=== PATIENT | female | born 1985 | race Caucasian/White ===

== ENCOUNTER → 2018-01-10 | Outpatient (CLI) | payer OTHER ==
[~2018-01-10] MED LIST: PRENTAB26 PO
== END | disposition home or self-care (01) ==
LOC: C.PAPS 11:50
PROVIDERS: ATTEND Obstetrics & Gynecology
DX: Z12.4 Encounter for screening for malignant neoplasm of cervix (principal); R87.616 Satisfactory cervical smear but lacking transformation zone

== ENCOUNTER 2018-03-03 05:31 | Observation (INO) | payer OTHER ==
[2018-02-12 09:39] VITALS: BMI 24.0
--- NOTE | 2018-02-12 10:02 | PAT Medication Instructions ---
Service Date Feb 12, 2018. Current Home Medication List No Active Prescriptions or Reported Meds Medication Instructions For Your Scheduled Surgery No Active Prescriptions or Reported Meds- Please contact PAT department if starting any medications prior to surgery. If you have any questions please call us at [phone] or [phone] or [phone]
[2018-02-12 11:30] LABS: BASO % 0.3 %; BASO ABS # 0.01 K/uL (0-0.2); EOS % 1.3 %; EOS ABS # 0.05 K/uL (0-0.5); HEMATOCRIT 35.1 % (37-47); HEMOGLOBIN 11.8 g/dL (12.0-16.0); LYMPH % 34.7 %; LYMPH ABS # 1.35 K/uL (1.2-3.4); MEAN CELL VOLUME 82.8 fL (80-100); MEAN CORPUSCULAR HEMOGLOBIN 27.8 pg (25-34); MEAN CORPUSCULAR HGB CONC 33.6 g/dl (32-36); MEAN PLATELET VOLUME 9.4 fL (7.4-10.4); MONO % 8.2 %; MONO ABS # 0.32 K/uL (0.11-0.59); NEUT % 55.5 %; NEUT ABS # 2.16 K/uL (1.4-6.5); PLATELET COUNT 166 K/uL (130-400); RED CELL DISTRIBUTION WIDTH CV 13.6 % (11.5-14.5); RED CELL DISTRIBUTION WIDTH SD 41.1 fL (36.4-46.3); WHITE BLOOD COUNT 3.89 K/uL (4.8-10.8)
[2018-02-12 11:33] LABS: CREATININE 0.74 mg/dl (0.60-1.20); POTASSIUM 3.9 mmol/L (3.5-5.1)
[~2018-03-03] VITALS: Ht 162.6 cm; Wt 63.8 kg
[2018-03-03] VITALS (8 sets, daily range): BP systolic 90–125; BP diastolic 42–78; PULSE 49–64; TEMP 36.4–36.8; O2SAT 99–100; Ht 162.6 cm; Wt 63.8 kg
[2018-03-03] MEDS ORDERED: CEFAZOLIN 2000MG IV PUSH 15 ML IV SCH (06:00)
[2018-03-03] MEDS ORDERED: LACTATED RINGER'S 1000ML 1,000 ML IV SCH ×2 (06:00→11:00)
[2018-03-03] MEDS ORDERED: IBUP-103 PO (06:01)
[2018-03-03] MEDS ORDERED: ACET-1311 PO (06:01)
[2018-03-03] MEDS ORDERED: METHYLENE BLUE 0.5% 10 ML VIAL ONE (06:56)
[2018-03-03] MEDS ORDERED: BUPIVACAINE 0.5 % 5 MG/1 ML MPF 30ML VIAL ONE (06:56)
[2018-03-03] MEDS ORDERED: FENTANYL CITRATE INJ 50 MCG/1 ML 2 ML VIAL ONE ×2 (07:01→08:01)
[2018-03-03] MEDS ORDERED: MIDAZOLAM HCL 1 MG/ML 2ML VIAL ONE (07:01)
--- NOTE | 2018-03-03 07:04 | History & Physical Bridge Note ---
H&P Re-Evaluation Bridge Note: I have examined the patient, reviewed the History & Physical and in the interval since the performance of the History & Physical I have noted the following changes of clinical significance: No changes noted
[2018-03-03] MEDS ORDERED: ACETAMINOPHEN 1000 MG/100 ML IV IV ONE (07:12)
[2018-03-03] MEDS ORDERED: LIDOCAINE HCL 2% JELLY 30 ML TUBE EXT ONE (07:12)
[2018-03-03] MEDS ORDERED: PROPOFOL IV EMULSION 10 MG/ML 20 ML VIAL IV ONE (08:07)
[2018-03-03] MEDS ORDERED: ONDANSETRON INJ 2 MG/ML 2 ML VIAL ONE (08:07)
[2018-03-03] MEDS ORDERED: GLYCOPYRROLATE INJ 0.2 MG/ML VIAL ONE ×2 (08:07→08:57)
[2018-03-03] MEDS ORDERED: DEXAMETHASONE SOD INJ 4 MG/ML VIAL ONE (08:07)
[2018-03-03] MEDS ORDERED: DiphenhydrAMINE HCL 50 MG/ML VIAL ONE (08:07)
[2018-03-03] MEDS ORDERED: ROCURONIUM BROMIDE 10 MG/ML 5 ML VIAL IV ONE ×2 (08:07→08:32)
[2018-03-03] MEDS ORDERED: LIDOCAINE HCL 2% 2 ML VIAL (20MG/ML) ONE (08:07)
[2018-03-03] MEDS ORDERED: NEOSTIGMINE METHYLSULFATE 5 MG/5 ML SYR ONE (08:07)
[2018-03-03] MEDS ORDERED: TISSEEL FIBRIN SEALANT 4ML TOP ONE (08:52)
[2018-03-03] MEDS ORDERED: KETOROLAC TROMETHAMINE 30 MG/ML VIAL ONE (08:58)
[2018-03-03] MEDS ORDERED: ACETAMINOPHEN 325 MG TAB PO PRN (09:15)
[2018-03-03] MEDS ORDERED: ONDANSETRON INJ 2 MG/ML 2 ML VIAL IV PRN (09:15)
[2018-03-03] MEDS ORDERED: KETOROLAC TROMETHAMINE 30 MG/ML VIAL IV. PRN (09:15)
[2018-03-03] MEDS ORDERED: ZOLPIDEM TARTRATE 5 MG TAB PO PRN (09:15)
[2018-03-03] MEDS ORDERED: PROMETHAZINE HCL INJ 12.5 MG in SODIUM CHLORIDE 0.9% 50ML 50 ML IV PRN (09:15)
[2018-03-03] MEDS ORDERED: OXYCODONE/ACETAMINOPHEN 5-325 TAB PO PRN ×2 (09:15)
[2018-03-03] MEDS ORDERED: BISACODYL 10 MG SUPP PR PRN (09:15)
[2018-03-03] MEDS ORDERED: SIMETHICONE 80 MG CHEW PO PRN (09:15)
[2018-03-03] MEDS ORDERED: IBUPROFEN 600 MG TAB PO PRN (09:15)
[2018-03-03] MEDS ORDERED: MAGNESIUM HYDROXIDE SUSP 30 ML UDC PO PRN (09:15)
[2018-03-03] MEDS ORDERED: MEPERIDINE HCL 50 MG/ML CARP IV PRN ×2 (09:15)
[2018-03-03] MEDS ORDERED: PROMETHAZINE HCL INJ 25 MG in SODIUM CHLORIDE 0.9% 50ML 50 ML IV PRN (09:15)
--- NOTE | 2018-03-03 09:16 | [facility] Post Operative Brief Note ---
Immediate Operative Summary Operative Date Mar 03, 2018. Pre-Operative Diagnosis Menorrhagia with irregular cycle, Leiomyoma of the Uterus, Uterine Enlargement Post-Operative Diagnosis Same as preop Procedure(s) Performed Total Laparoscopic Hysterectomy Bilateral Salpinjectomy Robot Assist; Cystopscopy Surgeon Dr. Matute Helminthologist Surgeon(s) None Estimated Blood Loss 20 ml Findings Consistent with Post-Op Diagnosis Specimens A. Cervix, Uterus, Bilateral Fallopian Tubes Drains Koehler Anesthesia Type General Complication(s) none Disposition Accompanied Pt To Recover: no Disposition: Recovery Room / PACU
--- NOTE | 2018-03-03 09:17 | Discharge Instructions ---
Discharge Instructions Date of Service Mar 03, 2018. Admission Reason for Admission: Menorrhagia W/Regular Cycle, Fibroids Discharge Discharge Diagnosis / Problem: Menorrhagia Discharge Goals Goal(s): Routine recovery after surgery Activity Recommendations Activity Limitations: per Instructions/Follow-up section . Instructions / Follow-Up Instructions / Follow-Up POST OPERATIVE: BOWEL FUNCTION/MEDICATIONS: 1. Constipation pain and discomfort are the most common complaints 5-7 days after surgery. Points 2-6 address the things that can help. 2. Chewing gum can help stimulate the gut and help improve digestion and motility. 3. Milk of Magnesia 1-2 times per day until return of bowel function. 4. Colace is a stool softener that helps. Taking this 2-3 times per day until bowel function returns to normal is highly recommended. 5. Dulcolax is a laxative that may be used if several days have passed without a bowel movement. Alternatively Miralax may be used daily instead. 6. Drink plenty of fluids as this will also reduce constipation. 7. Narcotic pain medications will be prescribed by your physician. They are safe to use and we encourage you to use them. If you are not allergic, ibuprofen will also be prescribed. Many patients will be able to transition off of the narcotic medications to ibuprofen by postoperative day 3. ACTIVITY RECOMMENDATIONS: 1. Get plenty of rest and listen to your body. If you are tired, take a nap. 2. You may shower, but do not take a tub bath until you see your doctor at the 2 week post operative visit. 3. Absolutely NO intercourse and nothing in the vagina until you are examined by your doctor at the 6 week visit. At that visit it will be determined when such activities can be resumed. This can range from 6-12 weeks after your surgery depending on healing time. 4. The main physical activity in the first week should be walking. By the second week you can slowly increase activity. There are no limits on walking up and down stairs. 5. Do not lift more than 5-10 lbs for 4 weeks. Remember the "one-handed rule", i.e. if you can lift something with only one hand it's likely okay. 6. Minimize improvement advisor like vacuuming and exercising for 4 weeks. "Overdoing it" can lead to incisions not healing, pain and vaginal bleeding , so again, listen to your body. 7. Driving can be resumed when you feel able. Do not drive within 24 hours of taking a narcotic medication. EXPECTATIONS: 1. Vaginal spotting, bleeding and discharge are common after surgery. There may even be an odor to the discharge which is often related to sutures used in the vagina. If you experience heavy vaginal bleeding, call the office number day or night [phone]. 2. Bladder discomfort is common after surgery from the catheter. This usually resolves in 1-2 weeks. 3. By the end of the 3rd or 4th week you should be feeling much better. It may take up to 6 weeks for your energy levels to return to normal. 4. Narcotic medications have side effects such as: dizziness, headache, nausea and/or vomiting. If you suspect your pain medication is causing problems, call our office and we may be able to prescribe an alternate medication. 5. The skin incisions are often covered with a liquid bandage. This will gradually peel off over time. CALL THE OFFICE IF YOU HAVE ANY OF THE FOLLOWIN. Temperature of 101 degrees or higher. 2. Severe abdominal or pelvic pain not relieved by pain medication. 3. Persistent nausea or vomiting. 4. Increased pain with urination or difficulty urinating. 5. Bright red bleeding that soaks more than 1 pad per hour. CONTACT PHONE NUMBERS: Main Office: [phone] Surgical Nurse: [phone] extension [phone] Avoid all tobacco products. If you need help to stop smoking, call [place]'s FREE QUITLINE at . This is a free call. Current Hospital Diet Patient's current hospital diet: Discharge Diet Recommended Diet: Regular Diet Procedures Procedures Performed: Total Laparoscopic Hysterectomy Bilateral Salpinjectomy Robot Assist; Cystopscopy Pending Studies Studies pending at discharge: no Medical Emergencies . Who to Call and When: Medical Emergencies: If at any time you feel your situation is an emergency, please call 911 immediately. . Non-Emergent Contact Non-Emergency issues call your: Parts Clerk . . "Provider Documentation" section prepared by Sammy Matute. .
[2018-03-03] MEDS ORDERED: MTR600X PO (09:18)
[2018-03-03] MEDS ORDERED: OXYC-57 PO (09:18)
--- NOTE | 2018-03-03 09:54 | OPERATIVE REPORT ---
DATE OF OPERATION: 03/03/2018 PREOPERATIVE DIAGNOSIS: Menorrhagia, leiomyoma of the uterus, and uterine enlargement. POSTOPERATIVE DIAGNOSIS: Same. PROCEDURE: Total laparoscopic hysterectomy, bilateral salpingectomy, cystoscopy, robotically assisted da Cony. Note ovaries were conserved. SURGEON: Sammy Matute MD MANUFACTURING WEAVER: None. ESTIMATED BLOOD LOSS: 20 mL. FINDINGS: Consistent with postoperative diagnosis. SPECIMENS: Cervix, uterus, bilateral fallopian tubes. DRAINS: Koehler. ANESTHETIC: General. COMPLICATIONS: None. DISPOSITION: Recovery room. DESCRIPTION OF PROCEDURE: Christie was given a general anesthetic, prepped and draped in dorsal lithotomy position in [facility]. IV Ancef given. Koehler catheter used to drain the bladder. A V-Care inserted into her uterus in the usual fashion. Gloves changed and a supraumbilical incision made with scalpel. With direct cutdown technique, we cut through the fascia in the midline, splitting the rectus muscles and entering the peritoneal cavity without difficulty. Blunt-tipped Jeanine trocar placed, balloon inflated to allow securing of the port. CO2 gas used to insufflate the abdomen. FINDINGS: Upper abdomen normal, no sign of visceral organ injury. Deep Trendelenburg position then obtained and the pelvis was visualized. Both ovaries appeared normal as did the bladder flap. Uterus was enlarged consistent with multiple irregular but smooth surfaced fibroids. Cul-de-sac was clear of any endometriosis. Three robotic ports were then placed under direct visualization, 2 in the right and 1 on the left side. A left upper quadrant 11 mm bladeless accessory port placed. Robot docked. Arm #1 was monopolar jose a, arm #2 was bipolar [place], arm #3 was ProGrasp. Using the V-Care to manipulate, we identified the course of the ureters both on left and right side and they followed a normal course. Fallopian tubes were carefully dissected away and then removed through the accessory port. We then coagulated the blood supply distal to the left ovary at the uteroovarian blood supply junction well away from the left ureter cutting through the uteroovarian blood supply and then same process with the round ligament. Uterine vessels on the left then skeletonized. Bladder flap sharply dissected away. We then coagulated the uterine blood vessels close to the cervix with the bipolar [place] staying well away from the left ureter. Vessels were then cut. Same exact process was continued on the right. We used the ProGrasp manipulate the uterus to allow exposure. Once the bladder flap was fully dissected away sharply, I was able to then make an anterior colpotomy with the monopolar jose a. Colpotomy was completed, staying medial to our uterine vessel ligations. Once colpotomy was completed, I was able to remove the specimen through the vagina. This did not require any cutting or morcellation of the specimen. Once removed, a sponge in a glove was placed to maintain pneumoperitoneum. The instruments were exchanged. Arm #1 became the radha needle special events driver, arm #2 became the AVOB grasper and then a 12 inch 2-0, 90-day V-Loc suture was passed through the accessory port. Cuff was closed from left to right, back right to left ensuring at least 1 cm full thickness bites of vaginal mucosa. Suture was cut, so there was no tail. Needle removed through the accessory ports. Sponge and a glove removed and there was no leakage of gas. After generous irrigation and suction, we then applied 4 mL of Tisseel to the vascular pedicles. At this stage, we then performed cystoscopy removing the Koehler catheter. Urine was clear. It should be noted, we gave methylene blue at the start of cuff closure. There were good strong jets of blue dye coming from both the left and right ureter openings. There were no sign of sutures or defects or injury to the bladder. Cystoscope removed and a Koehler catheter, a new one was placed for drainage. At this stage, we then docked the robot. Gas was allowed to escape. The instruments have been removed. The incisions injected with 0.5% Marcaine. Fascia closed carefully in the umbilical and left upper quadrant incisions with 0 Vicryl, subcutaneous fat irrigated, 4-0 subcuticular Monocryl closures and Dermabond applied. Sponge and instrument counts correct. I attest to the content of the Intraoperative Record and any orders documented therein. Any exception s are noted below.
--- NOTE | 2018-03-03 10:03 | Anesthesiology Progress Note ---
Anesthesia Post Op Note Date & Time Mar 03, 2018 at 10:03 Vital Signs Pain Intensity: 0 Vital Signs Past 12 Hours Date Time Temp Pulse Resp B/P (MAP) Pulse Ox O2 Delivery O2 Flow Rate FiO2 03/03/18 09:55 50 19 90/43 100 Nasal Cannula 2 03/03/18 09:45 49 19 96/46 100 Oxymask 10 03/03/18 09:35 58 17 93/51 100 Oxymask 10 03/03/18 09:29 36.0 72 10 112/65 100 Oxymask 10 03/03/18 05:50 36.7 64 18 125/60 (81) 99 Room Air Notes Mental Status: alert / awake / arousable, participated in evaluation Pt Amnestic to Procedure: Yes Nausea / Vomiting: adequately controlled Pain: adequately controlled Airway Patency, RR, SpO2: stable & adequate BP & HR: stable & adequate Hydration State: stable & adequate Anesthetic Complications: no major complications apparent
[2018-03-03] MEDS ORDERED: IV FLUIDS COMPLETED PRN (11:00)
[2018-03-03] MEDS ORDERED: DOCUSATE SODIUM 100 MG CAP PO SCH (21:00)
--- NOTE | 2018-03-05 07:51 | DISCHARGE SUMMARY ---
DATE OF SURGERY: 03/03/2018. CLINICAL HISTORY: Christie had a total laparoscopic hysterectomy on 03/03/2018. This was uncomplicated. This was for an enlarged uterus and fibroids. Her course in hospital was that she was discharged several hours later after surgery. At that time, she had voided well, was tolerating an oral diet, oral pain medication was controlling her pain. She had no extremity pain and no bleeding. PHYSICAL EXAMINATION: VITAL SIGNS: Stable. She was afebrile. IMPRESSION AND PLAN: Several hours post-laparoscopic hysterectomy, the patient discharged home with instructions and Percocet and Motrin, and told to follow up in the office with any concerns.
== END 2018-03-03 17:14 | disposition home or self-care (01) ==
LOC: C.ACU 05:31 → C.MS4N 06:00 → ENRESERV 10:21
PROVIDERS: ADMIT Obstetrics & Gynecology; ATTEND Obstetrics & Gynecology
DX: N92.1 Excessive and frequent menstruation with irregular cycle (principal); D25.0 Submucous leiomyoma of uterus; N85.2 Hypertrophy of uterus; Z82.49 Family history of ischemic heart disease and other diseases of the circulatory system; Z80.7 Family history of other malignant neoplasms of lymphoid, hematopoietic and related tissues; Z88.5 Allergy status to narcotic agent
CPT/HCPCS: 58571; S2900